=== PATIENT | male | born 1990 | race Two or more races ===

== ENCOUNTER 2019-08-15 13:07 | Emergency (ER) | payer BC ==
[~2019-08-15] VITALS: Ht 167.6 cm; Wt 96.0 kg
[2019-08-15] MEDS ORDERED: KETOROLAC 30 MG/1 ML IM ONE (14:00)
[2019-08-15] MEDS ORDERED: KETOROLAC 30 MG/1 ML ONE (14:10)
--- NOTE | 2019-08-15 14:14 | NUR ---
PT MEDICATED PER EMAR. PT TOLERATED WELL.
[2019-08-15 15:59] VITALS: BP 131/75
== END 2019-08-15 16:01 | disposition home or self-care (01) ==
LOC: ED 15:14
DX: G56.03 Carpal tunnel syndrome, bilateral upper limbs (principal); F17.210 Nicotine dependence, cigarettes, uncomplicated
CPT/HCPCS: 29260; 96372; 99283; J1885